=== PATIENT | male | born 1940 | race Caucasian/White ===

== ENCOUNTER → 2017-01-01 | Outpatient (CLI) | payer OTHER | LOC: BRMIMAGING 14:36 | PROVIDERS: ATTEND Nurse Practitioner | DX: R59.0 Localized enlarged lymph nodes (principal) ==

== ENCOUNTER 2017-02-20 07:26 | Emergency (ER) | payer OTHER ==
[2017-02-20] MEDS ORDERED: NS 1,000 ML IV ONE ×2 (07:56→08:34)
[2017-02-20] MEDS ORDERED: HYDROmorphONE/DILAUDID 1 MG/ML INJ IVP ONE (07:56)
[2017-02-20] MEDS ORDERED: ONDANSETRON 4 MG/2 ML VIAL IVP ONE (07:56)
--- NOTE | 2017-02-20 08:00 | EDPHY ---
H & P Time Seen by Provider: 02/20/17 07:42 HPI/ROS: CHIEF COMPLAINT: Sore throat, and can't sleep HISTORY OF PRESENT ILLNESS: Patient has been having sore throat for several weeks and some facial swelling. He had an ultrasound and ultimately had office procedure at Dr. Hernandez from ENTs office last week on . Apparently had a salivary gland infection and had 2 stones removed and lanced, was placed on oral steroids and antibiotics. Over the past 2-3 days he has been having trouble sleeping is waking up every 2 nights. He has some nausea and continued throat pain. He feels the swelling in his face on the left side and below his jaw is improving. This morning he feels like he has difficulty swallowing because of pain, but last night he was able to eat pizza. The pattern over the last couple of days is he has a sore throat in the morning but by the afternoon he is able to eat and drink normally. REVIEW OF SYSTEMS: Eye: no change in vision ENT: HPI, no ear symptoms Cardiac: no chest pain or syncope Pulmonary: no cough or SOB Abdomen: no vomiting, diarrhea, abdominal pain Musculoskeletal: no back pain Skin: no rash Neuro: Mild headache Constitutional: no fever : no urinary symptoms A comprehensive 10 point review of systems is otherwise negative aside from elements mentioned in the history of present illness. PAST MEDICAL HISTORY: Includes hypertension, and ENT as above Social history: Here with his General Appearance: Alert and conversant, cooperative. Eyes: No scleral icterus. ENT, Mouth: Normal mucous membranes. No trismus, normal uvula. No pharyngeal erythema or exudate. A little bit of submandibular swelling bilaterally but no fluctuance. No salivary gland fluctuance or tenderness. Normal tympanic membranes. Normal range of motion of the neck. Respiratory: Normal respiratory effort, breath sounds equal, lungs are clear to auscultation. No stridor or drooling and normal voice. Cardiovascular: Regular rate and rhythm. Gastrointestinal: Abdomen is soft and non tender. Neurological: Alert and oriented x3. Normally conversant. Face symmetric, normal movement and sensation in all extremities. Skin: Warm and dry, no rashes. Musculoskeletal: No peripheral edema and no joint swelling. Psychiatric: Not agitated. Emergency Department course/MDM: IV fluid hydration with 1 L normal saline, pain medication to include Dilaudid 0.5 mg IV, patient says his head and neck swelling are improving he does not have evidence of fluctuance or airway compromise. I do not think that additional imaging is indicated and the patient and his agree. I think the most likely reason for the patient's insomnia is the fact that he is on steroids until 24 hr ago. 915: Results discussed the patient and his . Plan to discharge with close ENT follow-up. He is feeling better. Halcion orally x2 for sleep. Ambulatory out of the emergency department without assistance. Smoking Status: Never smoked Constitutional: Initial Vital Signs Temperature (C) 37 C 02/20/17 07:34 Heart Rate 83 02/20/17 07:34 Respiratory Rate 16 02/20/17 07:34 Blood Pressure 196/107 H 02/20/17 07:34 O2 Sat (%) 93 02/20/17 07:34 O2 Delivery Mode Room Air O2 (L/minute) 2 Allergies/Adverse Reactions: No Known Allergies Allergy (Verified 05/24/14 16:36) Home Medications: Medication Instructions Recorded Aspirin [Aspirin 81mg] 81 mg PO HS 04/11/11 Doxazosin Mesylate 2 mg PO TID 04/11/11 Ezetimibe/Simvastatin [Vytorin 1 each PO HS 04/11/11 10-20 mg Tablet] NIFEDipine [Nifedipine ER] 60 mg PO DAILY 04/11/11 [place]-3 Fatty Acids/Fish Oil [Fish 2 each PO DAILY 04/11/11 Oil 1,000 mg Softgel] Probiotic 1 ea PO HS 04/11/11 Ramipril [Altace] 5 mg PO HS 04/11/11 Venlafaxine Xr [Effexor Xr] 75 mg PO TID 04/11/11 Zolpidem Tartrate [Ambien 10 mg] 5 mg PO HS 04/11/11 Ondansetron Odt [Zofran Odt] 4 mg PO Q4PRN PRN #10 tab 05/24/14 Triazolam [Halcion 0.25MG (*)] 0.25 mg PO HS PRN #2 tab 02/20/17 Medical Decision Making Differential Diagnosis: Differential for sore throat considered including but not limited to strep throat, viral syndrome, retropharyngeal abscess, other ENT abscess or infection. - Data Points Laboratory Results: Laboratory Results 02/20/17 08:08 02/20/17 08:08 02/20/17 02/20/17 08:08 08:08 WBC 22.73 10^3/uL H 10^3/uL (3.80-9.50) RBC 4.70 10^6/uL 10^6/uL (4.40-6.38) Hgb 14.1 g/dL g/dL (13.7-17.5) Hct 42.4 % % (40.0-51.0) MCV 90.2 fL fL (81.5-99.8) MCH 30.0 pg pg (27.9-34.1) MCHC 33.3 g/dL g/dL (32.4-36.7) RDW 13.3 % % (11.5-15.2) Plt Count 339 10^3/uL 10^3/uL (150-400) MPV 9.6 fL fL (8.7-11.7) Neut % (Auto) 80.5 % H % (39.3-74.2) Lymph % (Auto) 9.9 % L % (15.0-45.0) [place] % (Auto) 8.7 % % (4.5-13.0) Eos % (Auto) 0.0 % L % (0.6-7.6) Baso % (Auto) 0.2 % L % (0.3-1.7) Nucleat RBC Rel Count 0.0 % % (0.0-0.2) Absolute Neuts (auto) 18.31 10^3/uL H 10^3/uL (1.70-6.50) Absolute Lymphs (auto) 2.24 10^3/uL 10^3/uL (1.00-3.00) Absolute Monos (auto) 1.98 10^3/uL H 10^3/uL (0.30-0.80) Absolute Eos (auto) 0.00 10^3/uL L 10^3/uL (0.03-0.40) Absolute Basos (auto) 0.05 10^3/uL 10^3/uL (0.02-0.10) Absolute Nucleated RBC 0.00 10^3/uL 10^3/uL (0-0.01) Immature Gran % 0.7 % % (0.0-1.1) Immature Gran # 0.15 10^3/uL H 10^3/uL (0.00-0.10) Sodium 144 mEq/L mEq/L (134-144) Potassium 3.4 mEq/L L mEq/L (3.5-5.2) Chloride 102 mEq/L mEq/L (97-110) Carbon Dioxide 27 mEq/l mEq/l (22-31) Anion Gap 15 mEq/L mEq/L (8-16) BUN 18 mg/dL mg/dL (7-23) Creatinine 0.8 mg/dL mg/dL (0.7-1.3) Estimated GFR > 60 Glucose 114 mg/dL H mg/dL (70-100) Calcium 8.8 mg/dL mg/dL (8.5-10.4) Medications Given: Discontinued Medications Hydromorphone HCl (Dilaudid) 0.5 mg IVP EDNOW ONE Stop: 02/20/17 07:57 Last Admin: 02/20/17 08:19 Dose: 0.5 mg Sodium Chloride (Ns) 1,000 mls @ 0 mls/hr IV EDNOW ONE; Wide Open PRN Reason: Protocol Stop: 02/20/17 07:57 Last Admin: 02/20/17 08:18 Dose: 1,000 mls Sodium Chloride (Ns) 1,000 mls @ 0 mls/hr IV EDNOW ONE; Wide Open PRN Reason: Protocol Stop: 02/20/17 08:35 Last Admin: 02/20/17 09:02 Dose: 1,000 mls Ondansetron HCl (Zofran) 4 mg IVP EDNOW ONE Stop: 02/20/17 07:57 Last Admin: 02/20/17 08:19 Dose: 4 mg Departure - Departure Disposition: Home, Routine, Self-Care Clinical Impression: Salivary gland infection Insomnia Qualifiers: Insomnia type: unspecified Qualified Code(s): G47.00 - Insomnia, unspecified Condition: Good Instructions: Insomnia (ED) Referrals: Heidi Lara MD [Primary Care Provider] - As per Instructions Alexsander Hernandez MD [Medical Doctor] - 1 day without fail Prescriptions: Triazolam [Halcion 0.25MG (*)] 0.25 mg PO HS PRN #2 tab PRN Reason: insomnia
[2017-02-20 08:15] LABS: PLATELET COUNT 339 10^3/uL (150-400)
[2017-02-20 09:49] VITALS: BP 161/100; PULSE 78; RESP 18; TEMP 98.1; O2SAT 92
== END 2017-02-20 09:40 | disposition home or self-care (01) ==
DX: K11.20 Sialoadenitis, unspecified (principal); G47.00 Insomnia, unspecified; I10 Essential (primary) hypertension; E86.9 Volume depletion, unspecified; Z79.82 Long term (current) use of aspirin
CPT/HCPCS: 96361; 96374; 96375; 99284; J1170; J2405

== ENCOUNTER 2018-03-05 10:12 | Emergency (ER) | payer OTHER ==
--- NOTE | 2018-03-05 10:32 | EDPHY ---
H & P Stated Complaint: tripped last night injuring l hip Time Seen by Provider: 03/05/18 10:28 HPI/ROS: HPI: This is a 77-year-old male who presents with Chief Complaint: Tripped last night injury left hip Location: Left hip, left lateral ribs, left shoulder Quality: Injury Duration: Yesterday evening around 7:00 p.m. Signs and Symptoms: No bleeding, no radiation, no numbness, no weakness, no tingling, no incontinence, no decreased range of motion, no swelling, + pain, no fever Timing: Acute Severity: Moderate Context: Patient reports that he was carrying groceries in yesterday evening to his apartment when he accidentally tripped and landed directly on his left lateral hip and then on his left shoulder. He believes that he may have hit his left lateral ribs as well. Denies LOC/head injury/neck pain/dizziness/ nausea/vomiting/amnesia. He was able to get up on his own was ambulatory at the scene. He took ibuprofen 600 mg without any relief. He reports that he has increased pain with weight-bearing on his left leg mostly in the left lateral aspect. He takes aspirin daily. He reports that his shoulder pain has since resolved but he still has some residual left lateral rib pain. Patient was able to walk out of the apartment on his own. Modifying Factors: Ibuprofen Comment: ROS: A comprehensive 10 system review of systems is otherwise negative aside from elements mentioned in the history of present illness. MEDICAL/SURGICAL/SOCIAL HISTORY: Medical history: Hypertension Surgical history: Exploratory laparotomy Social history: Retired, , nonsmoker. CONSTITUTIONAL: Elderly, talkative, polite and cooperative white male, at bedside, awake and alert, no obvious distress HEENT: Atraumatic and normocephalic. NECK: supple, no midline tenderness, flexion 45 degrees, extension 45 degrees, right and left lateral flexion 45 degrees. No meningismus. Cardiovascular: Normal S1/S2, regular rate, regular rhythm, without murmur rub or gallop. PULMONARY/CHEST: Symmetrical and mild reproducible tenderness in the left lateral ribs but no ecchymosis, no step-off, no crepitus. Clear to auscultation bilaterally. Good air movement. No accessory muscle usage. ABDOMEN: Soft, nondistended, nontender, no ecchymosis. PELVIC: Mild pain with rocking; bilateral hips flexion 125 degrees, extension 30 degrees, moderate pain internal rotation and no pain external rotation. BACK: No midline tenderness, no paraspinous spasm, deep tendon reflexes 2/2, no pain with straight leg raise, No foot drop. Achilles reflexes are equal bilaterally. Able to walk on heels and toes without difficulty. EXTREMITIES: 2/2 pulses, strength 5/5, left SHOULDER: Arc test abduction to 180, abduction to 45, horizontal flexion 130, horizontal extension to 45, deltoid strength 5/5. No pain with Neer test/Carroll test (impingement). No Tenderness to palpation over AC joint. DIP/PIP/MCP flexion/extension intact with good light touch sensation. no deformities, no clubbing, no cyanosis or edema. NEUROLOGICAL: no focal neuro deficits. GCS 15. Light touch sensation intact. SKIN: Warm and dry, scattered bruising throughout, no erythema. no rash. Good capillary refill. Source: Patient, Old records Exam Limitations: No limitations - Personal History Current Tetanus Diphtheria and Acellular Pertussis (TDAP): Yes - Medical/Surgical History Hx Asthma: No Hx Chronic Respiratory Disease: No Hx Diabetes: No Hx Cardiac Disease: No Hx Renal Disease: No Hx Cirrhosis: No Hx Alcoholism: No Hx HIV/AIDS: No Hx Splenectomy or Spleen Trauma: No Other PMH: htn, xlap, - Social History Smoking Status: Never smoked Constitutional: Initial Vital Signs Temperature (C) 36.4 C 03/05/18 10:22 Heart Rate 81 03/05/18 10:22 Respiratory Rate 18 03/05/18 10:22 Blood Pressure 158/94 H 03/05/18 10:22 O2 Sat (%) 98 03/05/18 10:22 O2 Delivery Mode Room Air Allergies/Adverse Reactions: No Known Allergies Allergy (Verified 03/05/18 10:17) Home Medications: Medication Instructions Recorded Venlafaxine Xr [Effexor Xr] 75 mg PO TID 04/11/11 ALENDRONATE SODIUM 03/05/18 Atorvastatin Calcium 03/05/18 Finasteride 03/05/18 Flomax 03/05/18 Lidocaine 5% [Lidoderm 5% Patch] 1 ea TD Q12 #10 patch 03/05/18 Medical Decision Making - Diagnostics Imaging Results: Imaging Impressions Hip X-Ray 03/05/18 10:32 Impression: There is no acute osseous abnormality identified. If there is further clinical concern regarding an occult hip fracture, CT or MR imaging could be considered. Ribs w/Chest X-Ray 03/05/18 10:32 Impression: Acute peripheral lateral left seventh rib fracture. There is no pneumothorax or pleural effusion. ED Course/Re-evaluation: Patient did not hit head and had no loss of consciousness. He is greater than 65 years old and takes baby aspirin. Patient is adamant he did not his head and does not have neck pain there for head CT imaging/cervical CT imaging not ordered. Fall was mechanical in nature. No signs of syncope, acute coronary syndrome, seizure activity, sepsis. Left rib series with chest x-ray and left hip x-ray ordered. Patient politely declined pain medications upon arrival. Is agreeable to Lidoderm patch. Chest x-ray my read shows no pneumothorax but does show 1 isolated 7th rib fracture that is nondisplaced. No hypoxia or respiratory distress. Left hip x-ray my read shows no fracture, dislocation. Patient ambulatory without any deficits. Given a prescription for Lidoderm patches. No signs of neurovascular compromise/tenting of skin/compartment syndrome/ extremities and joints examined above and below area of concern and are neurovascularly intact. This patient was seen under the supervision of my secondary supervising physician. I evaluated care for this patient independently. Discussed this patient with Dr. Mccormack who did not see the patient. Differential Diagnosis: Differential diagnosis includes but is not limited to pelvic fracture, hip fracture, femur fracture, rib fracture. - Data Points Medications Given: Discontinued Medications Miscellaneous Medication (Icy Hot Lidocaine/Menthol 4%/1% Patch) 1 patch TD EDNOW ONE Stop: 03/05/18 12:06 Last Admin: 03/05/18 12:15 Dose: 1 patch Departure - Departure Disposition: Home, Routine, Self-Care Clinical Impression: Contusion of left hip, initial encounter Left rib fracture Qualifiers: Encounter type: initial encounter Rib fracture type: single rib Fracture type: closed Qualified Code(s): S22.32XA - Fracture of one rib, left side, initial encounter for closed fracture Condition: Good Instructions: Rib Fracture (ED), Hip Contusion (ED), Atelectasis (ED), How to Use an Incentive Spirometer (ED) Additional Instructions: Keep the dressing dry and in place for 48 hours. After 48 hours, you may remove the dressing; wash the site daily with mild soap and water; then pat dry. Take Tylenol 650 mg every 4 hours and/or Ibuprofen 600 mg every 8 hours with food as needed for pain. Apply ice for 30 minutes at a time; 2-3 times per day for the next 1-2 days. Apply Lidoderm patch every 12 hr to area of most discomfort. Make sure to take deep breaths using incentive spirometry several times every hour to prevent atelectasis for the next several days. Follow up with trauma in 5-7 days if symptoms persist at which time they will evaluate and recommend with you if conservative management versus further imaging is indicated. Referrals: Rony Castro MD [Medical Doctor] - As per Instructions Prescriptions: Lidocaine 5% [Lidoderm 5% Patch] 1 ea TD Q12 #10 patch
[2018-03-05] MEDS ORDERED: LIDOCAINE 4%/MENTHOL 1% PATCH TD ONE (12:05)
[2018-03-05 12:15] VITALS: BP 146/85
[2018-03-05] MEDS ORDERED: PATCH REMOVAL 1 EA PATCH TD SCH (21:00)
== END 2018-03-05 12:31 | disposition home or self-care (01) ==
DX: S22.32XA Fracture of one rib, left side, initial encounter for closed fracture (principal); S70.02XA Contusion of left hip, initial encounter; W01.0XXA Fall on same level from slipping, tripping and stumbling without subsequent striking against object, initial encounter; Y92.9 Unspecified place or not applicable; Y99.9 Unspecified external cause status; Y93.9 Activity, unspecified